=== PATIENT | male | born 1945 | race Caucasian/White ===

== ENCOUNTER 2018-10-04 09:35 | Inpatient (IN) ==
[2018-10-04] MEDS ORDERED: Albuterol 2.5 MG/3 ML NEBULIZER IH ONE (09:51)
[2018-10-04] MEDS ORDERED: CeFAZolin Syr 2,000MG/20 ML 2,000 MG/20 ML SYRINGE IVPB ONE (09:51)
[2018-10-04] MEDS ORDERED: Ringers Solution, Lactated 1,000 ML IVC SCH (10:00)
--- NOTE | 2018-10-04 10:17 | Anesthesia Evaluation PreOp ---
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 (Parkinsons ds, has significant intention tremors) Other Medical History: Denies Any Significant HX Anesthesia History: No Prior Anesthetic Complications, Past Anesthesia (left leg stent) Alcohol Use: occasionally Drug use: none Medications and Allergies Acetaminophen [Non-Aspirin] 650 mg PO Q4H PRN 09/16/18 [History] Baclofen [Lioresal] 10 mg PO TID 09/16/18 [History] Carbidopa/Levodopa 25/100 [Sinemet 25/100] 1 tab PO QID 09/16/18 [History] Propranolol HCl 40 mg PO TID 09/16/18 [History] Warfarin [Coumadin] 2.5 mg PO DAILY 09/16/18 [History] Allergy/AdvReac Type Severity Reaction Status Date / Time No Known Allergies Allergy Verified 09/16/18 11:30 - Meds/Allergy Pre-op Review Medications Reviewed: Yes (off coumadin x 5d, off lovenox 24h) Allergies Reviewed: Yes Beta Blockers on Current Med List: Yes (propranolol) If Beta Blockers taken, Date/Time (Last Dose taken): today 829 Anesthesia Results - Labs Laboratory Tests 09/14/18 09/14/18 12:47 12:47 Hgb 14.6 Hct 42.7 Plt Count 137 L Sodium 133 L Potassium 4.5 BUN 13 Creatinine 0.88 - Imaging EKG: report reviewed (SINUS BRADYCARDIA WITH SHORT IN INTERVAL PROBABLE INFERIOR MYOCARDIAL INFARCTION, PROBABLY OLD) Anesthesia Exam Selected Entries 10/04/18 10:05 Temperature 98.0 F Pulse Rate 50 Respiratory Rate 18 Blood Pressure 145/78 O2 Sat by Pulse Oximetry 96 Weight: 78kg - HEENT Pupil (Motor): EOMI Mallampati: III Teeth: Missing, Poor dentition Oral Opening: Greater than 3 - 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
[2018-10-04] MEDS ORDERED: *HR* OxyCODONE Immed Rel 5 MG TABLET PO PRN (10:27)
[2018-10-04] MEDS ORDERED: *HR* Promethazine 25 MG/ML VIAL IVP PRN (10:27)
[2018-10-04] MEDS: Ringers Solution, Lactated 1,000 ML IVC SCH ×2 (10:30→13:40)
--- NOTE | 2018-10-04 10:48 | History & Physical Report ---
Date of Encounter: 10/04/18 Time of Encounter: 10:47 24 Hour HP Update - Instructions Instructions: If the History and Physical is less than 30 days old and was completed prior to A.M. admission and or procedure and has NOT been updated on calendar day of procedure please complete this update prior to performing procedure. - Update Patient reports changes in Medical Condition: No Changes in examination, assessment, or condition: No Changes in Medication: No Preop tests/diagnostics Reviewed: Yes Surgery Remains Indicated: Yes Consent for Planned Operative Procedure(s) Verified: Yes - Pre-Operative Checklist Preoperative Checklist Indicated: Yes Prophylactic Antibiotic Ordered: Yes Home Medications Include Beta Yohannes: Yes Beta Yohannes Taken Today (Day of Surgery): Yes Beta Yohannes Taken Yesterday (Day Prior to Surgery): Yes Is VTE Prophylaxis Indicated?: Yes
[2018-10-04] MEDS ORDERED: Heparin 1,000 UNITS/500 mL 1,500 ML ONE (10:55)
[2018-10-04] MEDS ORDERED: ceFAZolin 1,000 MG, Sodium Chloride IRRigation 1,000 ML IR ONE (11:30)
--- NOTE | 2018-10-04 14:42 | Operative Note ---
Date of procedure: 10/04/18 Pre-op diagnosis: PAD/left lower extremity claudication Post-op diagnosis: same Procedure: Left femoral to below-knee popliteal artery bypass graft with 6 mm Distaflo. Complications: 0 Anesthesia: ROX Surgeon: Victorino Ortiz Was there an assistant speech language pathologist present: No Estimated blood loss (cc): 75 Specimen: 0 Condition: stable Disposition: PACU Procedure in Detail: History Eugenio Akins is a 72-year-old white male who was seen in outpatient consultation for severe left lower extremity claudication. This gentleman had had previous stents placed in the left superficial femoral artery at an outside hospital many years ago. He now has significant pain in the left lower extremity with lifestyle limiting claudication. His past history is also complicated by deep venous thrombosis and pulmonary embolism as well as chronic antico agulation. Procedure After informed consent was obtained the patient was taken to the operating room. General endotracheal anesthesia was established. The left lower extremity was sterilely prepped and draped. A timeout protocol was observed. The initial incision was in the left groin. This was placed in oblique orientation. Dissection was carried down to the common femoral artery at the level of the inguinal ligament and to the femoral bifurcation. The superficial femoral artery is occluded as documented on his preoperative angiogram. Controls obtained of the profunda femoris artery. Next an incision was made on the proximal aspect of the medial portion of the left calf in order to expose the below the knee popliteal artery. By the patient's preoperative angiogram the above-knee popliteal artery is occluded and where the vessel reconstitutes is essentially at the level at or below the patella thus making a below the knee popliteal exposure necessary to find an adequate outflow. Controls obtained of the below the knee popliteal artery. The artery was relatively lateral and also small in size. There were cycles of yellowish calcifications in the wall of the popliteal artery. After appropriate control was obtained a anatomic subsartorial tunnel was then created. A 6 mm diameter PTFE Distaflo many cuffed graft was selected. This was then passed through the tunnel. Heparin was administered a dose of 5000 units. After 3 minute delay the distal anastomosis was created. This was an end to side anastomosis created to the below the knee popliteal artery. The artery was opened and found to be without signs of thrombus. The anastomosis was created then using 6-0 Prolene suture. The graft was unclamped and the qawalangin popliteal artery is released to allow circulation through the collaterals into the calf. Attention was then redirected to the groin. The proximal anastomosis was then created an end to side fashion. An arteriotomy was made on the distal aspect of the left common femoral artery along its anterior surface. Again an end side anastomotic configuration was created using 6-0 Prolene suture. After appropriate backbleeding and flushing the graft was opened. Excellent pulsatile flow was noted by palpation and by Doppler. Doppler signals were identified 3 at the left ankle. The 2 incisions were then irrigated with antibiotic containing solution and hemostasis achieved. Protamine was not administered. The wounds were then closed in layers using absorbable suture. A dry sterile dressing was applied. The patient was extubated in the operating room. He was taken from the operating room to the recovery room in stable condition. There were no intraoperative complications. There were no intraoperative blood transfusions.
[2018-10-04] MEDS: *HR* HYDROmorphone (PF) 1 MG/ML SYRINGE IVP PRN ×2 (15:04→15:17)
--- NOTE | 2018-10-04 15:58 | Anesthesia Evaluation Post Op ---
Date of Encounter: 10/04/18 Time of Encounter: 15:56 - Vital Signs Vital Signs: Vital Signs/O2 Sat, Most Current Temp Pulse Resp BP Pulse Ox 97.2 F L 54 15 168/75 96 10/04/18 15:45 10/04/18 15:45 10/04/18 15:45 10/04/18 15:45 10/04/18 15:45 - Lungs Lungs: Clear Ascult./Percussion - Airway Airway: Non-obstructed - Cardiovascular Regular Rate - Mental Status Mental Status: Alert & Oriented, Answers Appropriately - Pain Pain Scale: 0 Pain Scale used: Numeric (1 - 10) - Nausea Vomiting Nausea Vomiting: Not Present - Hydration Hydration: Ice chips - Discharge PostOp Status: Transfer Patient to floor
[2018-10-04] MEDS ORDERED: *HR* Labetalol 20 MG/4 ML SYRINGE IVP PRN (16:18)
[2018-10-04] MEDS ORDERED: Acetaminophen 325 MG TABLET PO PRN (16:18)
[2018-10-04] MEDS ORDERED: Naloxone 0.4 MG/ML INJ IVP PRN (16:18)
[2018-10-04] MEDS ORDERED: Ondansetron 4 MG/2 ML VIAL IVP PRN (16:18)
[2018-10-04] MEDS: *HR* HYDROcodone/Acet 5/325 mg TABLET PO PRN (17:24)
[2018-10-04] MEDS: Carbidopa/Levodopa 25/100 TABLET PO SCH ×2 (17:24→20:50)
[2018-10-04] MEDS: Baclofen 10 MG TABLET PO SCH ×2 (17:24→21:07)
[2018-10-04] MEDS: *HR* OxyCODONE Immed Rel 5 MG TABLET PO PRN (19:47)
[2018-10-04] MEDS ORDERED: rOPINIRole 1 MG TABLET PO SCH (21:00)
[2018-10-05] MEDS: *HR* OxyCODONE Immed Rel 5 MG TABLET PO PRN (01:18)
[2018-10-05 05:11] LABS: Basophils % 0.4 %; Eosinophils # 0.1 K/mcL (0.0-0.6); Eosinophils % 0.8 %; Hematocrit 36.3 % (37.5-50.1); Hemoglobin 12.2 g/dL (12.9-16.9); Immature Granulocytes % 0.3 % (0-4); Lymphocytes # 1.6 K/mcL (0.6-4.6); Lymphocytes % 22.6 %; Mean Corpuscular HGB Conc 33.6 g/dL (31.6-35.5); Mean Corpuscular Hemoglobin 32.3 pg (28.0-33.3); Mean Platelet Volume 10.3 fL (9.4-12.4); Monocytes # 0.8 K/mcL (0.0-1.3); Monocytes % 10.6 %; Neutrophils # 4.7 K/mcL (1.6-8.9); Platelet Count 137 K/mcL (140-400); Red Blood Count 3.78 M/mcL (4.19-5.50); Red Cell Distribution Width 14.3 % (11.5-14.5); Segmented Neutrophils % 65.3 %; White Blood Count 7.3 K/mcL (4.3-11.1)
[2018-10-05 05:19] LABS: BUN/Creatinine Ratio 16 (6-26); Blood Urea Nitrogen 11 mg/dL (8-23); Calcium 8.2 mg/dL (8.6-10.3); Carbon Dioxide 24 mEq/L (23-29); Chloride 101 mEq/L (98-107); Glucose 111 mg/dL (70-105); Osmolality,Calculated 274 (280-300); Potassium 4.1 mEq/L (3.5-5.1); Sodium 132 mEq/L (136-145); eGFR For African Americans > 60 (> 60); eGFR For Non-African Americans > 60 (> 60)
[2018-10-05] MEDS: Carbidopa/Levodopa 25/100 TABLET PO SCH ×4 (08:24→17:08)
[2018-10-05] MEDS: *HR* HYDROcodone/Acet 5/325 mg TABLET PO PRN ×2 (08:24→17:34)
[2018-10-05] MEDS: Baclofen 10 MG TABLET PO SCH ×2 (08:25→17:07)
[2018-10-05 16:33] VITALS: BP 160/81
--- NOTE | 2018-10-05 17:59 | Discharge Summary ---
Orders not resulted at time of discharge: Pending orders 09/27/18 Red Blood Cells [BBK] Routine Date of Encounter: 10/05/18 Time of Encounter: 17:57 - Discharge Diagnosis (1) PAD (peripheral artery disease) Priority: Primary Status: Chronic Comments: Patient underwent left femoral-popliteal bypass graft for total occlusion of left SFA. (2) History of DVT (deep vein thrombosis) Priority: Secondary Status: Chronic Comments: Patient is on long-term anticoagulation therapy (3) History of pulmonary embolism Priority: Secondary Status: Chronic Comments: Patient is on long-term anticoagulation therapy (4) Parkinsons disease Priority: Secondary Status: Chronic Comments: The patient is undergoing medical treatment for Parkinson's disease. (5) COPD (chronic obstructive pulmonary disease) Priority: Secondary Status: Chronic Comments: Patient has chronic COPD Qualifiers: COPD type: unspecified COPD Qualified Code(s): J44.9 - Chronic obstructive pulmonary disease, unspecified - Hospital Course Hospital course: Mr. Akins is a 72 year old male With a long history of peripheral vascular disease. He had had previous left superficial femoral artery stent angioplasties. These areas have thrombosed. Patient had lifestyle limiting claudication. He was then evaluated with angiography which confirmed the diagnosis and he was not amenable to endovascular intervention. The patient was now admitted for direct reconstruction of the left lower extremity. The patient underwent a left femoral to [id number] popliteal artery bypass graft yesterday. The procedure was performed without complication. He tolerated the operation well. He was able to ambulate well on postoperative day #1. He was felt fit for discharge on the afternoon of postoperative day #1. Information was given to him and his regarding his diet and medications and activities as well as wound care are to discharge. All questions were answered. - Time Spent with Patient Total time spent providing and/or coordinating discharge services: - Discharge Medications Prescriptions: New HYDROcodone/Acet 5/325 mg [Penfield 5-325 mg] 1 tab PO Q6HR PRN 7 Days #10 tablet PRN Reason: Moderate Pain Continued Warfarin [Coumadin] 2.5 mg PO MOWEFRSA Propranolol HCl 40 mg PO TID Carbidopa/Levodopa 25/100 [Sinemet 25/100] 1 tab PO QID Baclofen [Lioresal] 5 mg PO TID Carbidopa/Levodopa [Carbidopa-Levo ER 25-100 Tab] 1 tab PO HS Enoxaparin [Lovenox] 80 mg SQ Q12HR Losartan Potassium [Cozaar] 50 mg PO DAILY Primidone [Mysoline] 250 mg PO HS Ropinirole HCl [Requip] 0.5 mg PO HS Rosuvastatin Calcium [Crestor] 5 mg PO DAILY Warfarin [Coumadin] 5 mg PO SUTUTH Home Medications: Baclofen [Lioresal] 5 mg PO TID 09/16/18 [History] Carbidopa/Levodopa 25/100 [Sinemet 25/100] 1 tab PO QID 09/16/18 [History] Propranolol HCl 40 mg PO TID 09/16/18 [History] Warfarin [Coumadin] 2.5 mg PO MOWEFRSA 09/16/18 [History] Carbidopa/Levodopa [Carbidopa-Levo ER 25-100 Tab] 1 tab PO HS 10/04/18 [History] Enoxaparin [Lovenox] 80 mg SQ Q12HR 10/04/18 [History] Losartan Potassium [Cozaar] 50 mg PO DAILY 10/04/18 [History] Primidone [Mysoline] 250 mg PO HS 10/04/18 [History] Ropinirole HCl [Requip] 0.5 mg PO HS 10/04/18 [History] Rosuvastatin Calcium [Crestor] 5 mg PO DAILY 10/04/18 [History] Warfarin [Coumadin] 5 mg PO SUTUTH 10/04/18 [History] HYDROcodone/Acet 5/325 mg [Penfield 5-325 mg] 1 tab PO Q6HR PRN 7 Days #10 tablet 10/05/18 [Rx] Allergies/Adverse Reactions: Allergy/AdvReac Type Severity Reaction Status Date / Time No Known Allergies Allergy Verified 10/04/18 10:28 Date of admission: 10/04/18 16:06 [facility] care physician: [facility] Consults: None Procedure(s) Performed: Left femoral to below-knee popliteal artery bypass graft with PTFE. Discharging clinician: Victorino Ortiz Anticipated date of discharge: 10/05/18 Exam Vital Signs, Last 4 Hours Temp Pulse Resp BP Pulse Ox 10/05/18 16:31 97.9 F 61 18 160/81 98 General: Present: Conversant, No Apparent Distress, Well developed, Well nourished HEENT: Present: Atraumatic Neck: Absent: JVD Cardiac: Present: Reg Rate and Rhythm Lungs: Present: Normal Breath Sounds Neuro: Present: Alert and responsive, No focal deficits noted Abdomen: Present: Soft Vascular: Present: Pulse, normal, Color/Temperature (Feet are warm and pink), Surgical incisions (Dry dressings on surgical incisions.) - Patient Status Disposition: Home, Self-Care Functional capacity at discharge: independent ambulation Overall status at discharge: patient is progressing back to baseline - Discharge Instructions Follow Up With: [place],PCP [Primary Care Provider] - 10/12/18 12:30 pm ([place]) Victorino Ortiz MD [Partnered Physician] - 10/24/18 9:45 am Additional Instructions: Removed surgical dressings tomorrow at home. Patient may ambulate both inside and outside. Patient may use stairs as tolerated. No lifting greater than 10 pounds. No manual labor. No driving. Elevate left lower extremity while at rest. Keep surgical sites dry for a total of 5 days following surgery. Using incentive spirometer at home 10 times an hour while awake. Resume usual home medications. Resume Lovenox therapy tomorrow morning at 8 AM. Resume Coumadin therapy tomorrow afternoon at usual dose. Patient to go to [facility] Coumad[facility] clinic on Wednesday for recheck of INR for modification of dosing and possible suspension of Lovenox therapy. Follow-up with Dr. Ortiz in 2 weeks in vascular surgery clinic in medical office building [id number] - Diet and Activity Activity: increase activity as tolerated Diet: low fat, low cholesterol
== END 2018-10-05 19:00 | disposition home or self-care (01) | DRG 254 ==
LOC: SAMDAY 09:35 → 2NNU 16:06
PROVIDERS: ADMIT Surgery Vascular Surgery; ATTEND Surgery Vascular Surgery